=== PATIENT | female | born 2005 | race Caucasian/White ===

== ENCOUNTER 2024-07-11 12:51 | Emergency (ER) | payer BC ==
[~2024-07-11] VITALS: Ht 170.2 cm; Wt 79.5 kg
[2024-07-11 12:56] VITALS: BP 111/63; PULSE 64; RESP 18; TEMP 98.3; O2SAT 99
[2024-07-11] MEDS ORDERED: LIDO700A15 TP (17:39)
[2024-07-11] MEDS ORDERED: CYCL-448 PO (17:39)
[2024-07-11] MEDS: LIDOCAINE 5% TRANSDERMAL PATCH TD ONE (18:17)
[2024-07-11] MEDS: KETOROLAC TROMETHAMINE 30 MG/ML VIAL IM ONE (18:17)
[2024-07-11 18:19] LABS: APPEARANCE,URINE CLEAR (CLEAR); BILIRUBIN,URINE NEGATIVE (NEGATIVE); COLOR,URINE YELLOW (YELLOW); GLUCOSE, URINE (UA) NEGATIVE (NEGATIVE); KETONES,URINE NEGATIVE (NEGATIVE); LEUKOCYTE ESTERASE ,URINE NEGATIVE (NEGATIVE); NITRATE,URINE NEGATIVE (NEGATIVE); OCCULT BLOOD,URINE NEGATIVE (NEGATIVE); PROTEIN,URINE TRACE mg/dL (NEGATIVE); SPECIFIC GRAVITIY, URINE 1.026 (1.003-1.030); UROBILINOGEN,URINE <=1.0 mg/dL (<=1.0)
[2024-07-11 18:21] LABS: HCG,QUAL URINE NEGATIVE (NEGATIVE)
== END 2024-07-11 19:15 | disposition home or self-care (01) ==
LOC: EMS 12:51
DX: M54.50 Low back pain, unspecified (principal); F12.90 Cannabis use, unspecified, uncomplicated; Z91.013 Allergy to seafood
CPT/HCPCS: 99283; 81003; 84703; 96372; J1885

== ENCOUNTER 2024-09-12 07:11 | Emergency (ER) | payer BC, MEDICAID ==
[~2024-09-12] VITALS: Ht 170.2 cm; Wt 79.5 kg
[~2024-09-12 07:11] MED LIST: CYCL-448 PO; LIDO700A15 TP
[2024-09-12 07:21] VITALS: TEMP 98
[2024-09-12 10:59] VITALS: BP 122/74; PULSE 70; RESP 16; O2SAT 98
[2024-09-12] MEDS ORDERED: OXYC-38 PO (11:16)
== END 2024-09-12 11:27 | disposition home or self-care (01) ==
LOC: EMS 07:13
DX: S00.83XA Contusion of other part of head, initial encounter (principal); M25.511 Pain in right shoulder; M54.50 Low back pain, unspecified; F12.90 Cannabis use, unspecified, uncomplicated; Y04.8XXA Assault by other bodily force, initial encounter; Y93.89 Activity, other specified; Y92.89 Other specified places as the place of occurrence of the external cause; Y99.8 Other external cause status
CPT/HCPCS: 70450; 70486; 72131; 99284